=== PATIENT | female | born 1950 | race Caucasian/White ===

== ENCOUNTER 2017-02-09 06:10 | Day surgery (SDC) | payer MEDICARE, BC ==
[~2017-02-09 06:10] MED LIST: Lactated Ringers 1,000 ML IV SCH
[2017-02-09] MEDS ORDERED: fentaNYL 100 MCG/2 ML SDV ONE (07:54)
[2017-02-09] MEDS ORDERED: Propofol 200 MG/20 ML SDV ONE ×3 (07:54→08:31)
[2017-02-09 08:58] VITALS: BP 154/61
--- NOTE | 2017-02-09 12:59 | OR ---
DATE OF SURGERY: 02/09/2017. REFERRING PROVIDER: Ayanna Bruce DO. PRE-OPERATIVE DIAGNOSES: Positive fit stool card. This is the patient's 1st colonoscopy. There is no known family history of colon cancer, colon polyps. There is a personal history of ovarian cancer. POST-OPERATIVE DIAGNOSES: 1. Total of 5 polyps removed today. a. 4 mm polyp at 90 cm removed with hot snare. b. 6 mm sessile polyp at 55 cm removed with hot snare. c. 5 mm removed with hot snare and 2 mm removed with cold forceps at 30 cm. d. 10 mm polyp at 20 cm removed with hot snare. 2. Mild left-sided diverticulosis. 3. Mild internal and external hemorrhoids, not acutely inflamed. PROCEDURE: Colonoscopy with polypectomy x5 (4 using hot snare and 1 using cold forceps) SURGEON: Reynaldo Little M.D. ANESTHESIA: Monitored anesthesia care. BOWEL PREP: Good. DESCRIPTION OF PROCEDURE: Elsa polanco a 66-year-old female was brought to the endoscopy suite after discussing risks and benefits of the procedure. Informed consent was obtained for conscious sedation and colonoscopy with or without biopsy and/or polypectomy. We also discussed possibility of missed lesions. Pre-procedure exam was unremarkable. IV, oxygen, and monitors were placed. The patient was placed in the left lateral decubitus position. Sedation was administered and a digital rectal exam was performed which was remarkable and was remarkable for some external hemorrhoidal skin tags. Colonoscope was passed into the rectum and slowly advanced all the way to the cecum. Cecum was viewed and photographed. The colonoscope was slowly withdrawn and the mucosa was closed observed in a direct circumferential manner. The ascending colon was unremarkable. The transverse colon revealed 4 mm polyp at 90 cm removed with hot snare. At 55 cm, there was a 6 mm sessile polyp removed with hot snare as well. The descending colon revealed a 5 mm and 2 mm polyp at 30 cm. The larger of which was removed with hot snare and smaller removed with cold forceps. The sigmoid colon revealed 10 mm polyp at 20 cm, removed with hot snare. Retroflexion was performed and rectal mucosa was remarkable for some mild internal hemorrhoids, not acutely inflamed. Scope was removed. The patient tolerated the procedure well. The patient was monitored until that baseline status. Discharge instructions were reviewed and the patient was discharged in good condition. COMPLICATIONS: None. TOTAL TIME: 26 minutes. ESTIMATED BLOOD LOSS: Less than 1 mL.. RECOMMENDATIONS/FOLLOW-UP: We will await results of path report to determine ideal followup interval. We will have the patient hold her aspirin for 3 days to limit any chance of bleeding. I would like to kindly thank Ayanna Bruce for this referral. DMB: 02/09/2017 08:47:22 MODL: 02/09/2017 12:23:10 /[id number]
== END 2017-02-09 10:05 | disposition home or self-care (01) ==
LOC: VM.SDS 06:10
PROVIDERS: ATTEND Family Medicine
DX: D12.6 Benign neoplasm of colon, unspecified (principal); K63.5 Polyp of colon; K57.30 Diverticulosis of large intestine without perforation or abscess without bleeding; K64.4 Residual hemorrhoidal skin tags; K64.8 Other hemorrhoids; I10 Essential (primary) hypertension; E78.00 Pure hypercholesterolemia, unspecified; E78.5 Hyperlipidemia, unspecified; E66.9 Obesity, unspecified; Z88.0 Allergy status to penicillin; Z91.040 Latex allergy status; Z91.013 Allergy to seafood; Z79.82 Long term (current) use of aspirin; Z79.899 Other long term (current) drug therapy; Z68.38 Body mass index [BMI] 38.0-38.9, adult
CPT/HCPCS: 45380; 45385; J2704; J3010; J7120; 88305

== ENCOUNTER 2020-09-03 09:06 | Day surgery (SDC) | payer MEDICARE, BC ==
[2020-09-03] MEDS ORDERED: Propofol 200 MG/20 ML SDV ONE ×2 (11:08→12:33)
[2020-09-03 13:03] VITALS: BP 149/69; PULSE 56
--- NOTE | 2020-09-04 09:39 | OR ---
DATE OF SURGERY: 09/03/2020 REFERRING PROVIDER: Ayanna Bruce DO. PRE-OPERATIVE DIAGNOSES: History of colon polyps. Last colonoscopy 01/2017 revealed 5 polyps. POST-OPERATIVE DIAGNOSES: 1. Two small polyps removed using cold forceps. a. 2 mm polyp at entry to cecum. b. 3 mm polyp at 110 cm (near hepatic flexure). 2. Moderate diverticulosis, left greater than right. 3. Normal-appearing distal ileum. PROCEDURE: Colonoscopy with polypectomy x2 using cold forceps. SURGEON: Reynaldo Little M.D. ANESTHESIA: Monitored anesthesia care. BOWEL PREP: Boyd Hunter is a 69-year-old female who was brought to the endoscopy suite after discussing risks and benefits of the procedure. Informed consent was obtained for conscious sedation and colonoscopy with or without biopsy and/or polypectomy. We also discussed possibility of missed lesions. Pre-procedure exam was unremarkable. IV, oxygen, and monitors were placed. The patient was placed in the left lateral decubitus position. Sedation was administered and a digital rectal exam was performed and unremarkable. Colonoscope was passed into the rectum and slowly advanced all the way to the cecum. Cecum was viewed and photographed. Ileocecal valve was intubated and distal ileum was normal in appearance. The colonoscope was slowly withdrawn and the mucosa was closed observed in a direct circumferential manner. The ascending colon was remarkable for 2 mm polyp at the entry to the cecum and a 3 mm polyp at 110 cm near hepatic flexure. These were both removed using cold forceps. The patient did have moderate scattered diverticulosis, left greater than right. Otherwise, transverse colon unremarkable. The descending colon and sigmoid colon revealed diverticulosis as noted, which was moderate. Retroflexion was performed and rectal mucosa unremarkable. Scope was removed. The patient tolerated the procedure well. The patient was monitored until that baseline status. Discharge instructions were reviewed and the patient was discharged in good condition. COMPLICATIONS: None. TOTAL TIME: 25 minutes. ESTIMATED BLOOD LOSS: Less than 1 mL. RECOMMENDATIONS/FOLLOW-UP: We will await results of path report to determine ideal followup interval. I would like to kindly thank Ayanna Bruce for this referral. DMB: 09/03/2020 15:29:21 MODL: 09/03/2020 22:26:33 /[id number]
== END 2020-09-03 13:45 | disposition home or self-care (01) ==
LOC: VM.SDS 09:06
PROVIDERS: ATTEND Family Medicine
DX: D12.6 Benign neoplasm of colon, unspecified (principal); K57.30 Diverticulosis of large intestine without perforation or abscess without bleeding; I10 Essential (primary) hypertension; E78.00 Pure hypercholesterolemia, unspecified; M81.0 Age-related osteoporosis without current pathological fracture; E66.9 Obesity, unspecified; Z68.41 Body mass index [BMI] 40.0-44.9, adult; R60.9 Edema, unspecified; E78.5 Hyperlipidemia, unspecified; Z86.16 Personal history of COVID-19; Z79.899 Other long term (current) drug therapy; Z88.0 Allergy status to penicillin; Z91.040 Latex allergy status; Z91.09 Other allergy status, other than to drugs and biological substances; Z85.43 Personal history of malignant neoplasm of ovary; Z86.010 Personal history of colon polyps; Z98.890 Other specified postprocedural states
CPT/HCPCS: 00812; 88305; J2704; J7120